=== PATIENT | female | born 1995 | race African-American/Black ===

== ENCOUNTER 2024-04-19 08:31 | Emergency (ER) | payer MEDICAID ==
[~2024-04-19] VITALS: Ht 170.2 cm; Wt 60.0 kg
[2024-04-19] MEDS: METHYLPREDNISOLONE SOD SUCC 125MG/2ML (ACT-O-VIAL) IV NR (09:02)
[2024-04-19 09:07] VITALS: PULSE 107; RESP 22; O2SAT 99
[2024-04-19] MEDS: IPRATROPIUM BROMIDE (0.02%) 0.5MG/2.5ML NEB HHN NR (09:07)
[2024-04-19] MEDS: ALBUTEROL (0.083%) 2.5MG/3ML NEB HHN NR (09:07)
[2024-04-19] MEDS: MAGNESIUM 2 G PREMIX 50 ML IV NR (09:37)
[2024-04-19] MEDS: ACETAMINOPHEN 325MG TABLET PO NR (09:37)
[2024-04-19] MEDS ORDERED: P50 PO (10:16)
[2024-04-19] MEDS ORDERED: ALBU6.7H15 INH (10:16)
[2024-04-19] MEDS ORDERED: ALBU05 NEB (10:16)
[2024-04-19 10:43] VITALS: BP 127/87; PULSE 107; RESP 17; TEMP 98.4
== END 2024-04-19 11:02 | disposition home or self-care (01) ==
LOC: ER 08:31
DX: J45.909 Unspecified asthma, uncomplicated (principal); Z87.891 Personal history of nicotine dependence
CPT/HCPCS: 71045; 93005; 94644; 96365; 96375; 99285; J3475; J2930; Z7610 ×3; 94640

== ENCOUNTER 2025-04-18 05:33 | Emergency (ER) | payer MEDICAID ==
[~2025-04-18] VITALS: Ht 165.1 cm; Wt 91.4 kg
[~2025-04-18 05:33] MED LIST: ALBU05 NEB; ALBU6.7H15 INH; P50 PO
[2025-04-18] MEDS: PREDNISONE 20MG TABLET PO STA (06:21)
[2025-04-18 06:41] VITALS: PULSE 92; RESP 20; O2SAT 99
[2025-04-18] MEDS: IPRATROPIUM BROMIDE (0.02%) 0.5MG/2.5ML NEB HHN STA (06:41)
[2025-04-18] MEDS: ALBUTEROL (0.083%) 2.5MG/3ML NEB HHN STA (06:41)
[2025-04-18] MEDS ORDERED: ALBU90AE INH (08:00)
[2025-04-18 08:12] VITALS: BP 143/76; PULSE 90; RESP 16; TEMP 36.9; O2SAT 100
[2025-04-18] MEDS ORDERED: BENZONATATE 100MG CAPSULE PO ONE (08:15)
== END 2025-04-18 08:15 | disposition home or self-care (01) ==
LOC: ER 05:33
DX: J45.901 Unspecified asthma with (acute) exacerbation (principal)
CPT/HCPCS: 81025; 94644; 99285; J7512; Z7610; 94070; 94640; 94664

== ENCOUNTER 2025-07-15 21:40 | Emergency (ER) | payer SELFPAY ==
[~2025-07-15] VITALS: Ht 165.1 cm; Wt 94.0 kg
[~2025-07-15 21:40] MED LIST changes: +ALBU90AE INH
[2025-07-15] MEDS: METHYLPREDNISOLONE 40MG/ML INJ IV ONE (23:45)
[2025-07-16] MEDS: METHYLPREDNISOLONE SOD SUCC 125MG/2ML (ACT-O-VIAL) IV NR (00:12)
[2025-07-16 00:34] VITALS: PULSE 75; RESP 20; O2SAT 100
[2025-07-16] MEDS: IPRATROPIUM/ALBUTEROL 0.5-3(2.5)MG/3ML NEB HHN ONE ×3 (00:34→03:47)
[2025-07-16 02:34] VITALS: PULSE 75; RESP 19; O2SAT 99
[2025-07-16 03:48] VITALS: PULSE 70; RESP 20; O2SAT 100
[2025-07-16] MEDS ORDERED: ALBU2SYR23 MT (04:13)
[2025-07-16] MEDS ORDERED: ALBU18HF2 IH (04:13)
[2025-07-16] MEDS ORDERED: P50 PO (04:13)
[2025-07-16 04:53] VITALS: BP 131/88; PULSE 91; RESP 15; TEMP 36.8; O2SAT 98
== END 2025-07-16 04:54 | disposition home or self-care (01) ==
LOC: ER 21:40
DX: J45.901 Unspecified asthma with (acute) exacerbation (principal)
CPT/HCPCS: 71045; 99285; 94640; 96374; J2919; Z7610 ×2; 99283